=== PATIENT | female | born 1945 | race Caucasian/White ===

== ENCOUNTER 2022-05-16 09:11 | Emergency (ER) | payer MEDICARE, SELFPAY ==
--- NOTE | ~2022-05-16 | CT_ITS ---
EXAMINATION: CTA chest PE protocol DATE: 05/16/2022 12:23 INDICATION: Positive d-dimer. Tachycardia. TECHNIQUE: Computed tomography angiography (CTA) of the chest was performed with 100 mL Omnipaque-350 intravenous contrast timed to evaluate the pulmonary arteries. Coronal maximum intensity projection 3D-reconstructions were created by the technologist. Automated exposure control and iterative reconst ruction technique were employed. Exam dose: 383.12 mGy-cm total exam DLP. COMPARISON: None. FINDINGS: There is diagnostic contrast enhancement of the pulmonary arteries and no evidence of pulmo nary embolism. No thoracic aortic aneurysm or dissection. Normal heart size. No hilar or mediastinal mass lesion or lymphadenopathy. No pulmonary infiltrate or consolidation. Small sliding hiatal hernia. The adrenal glands are unremarkable. Included skeletal structures are unremarkable. IMPRESSION: Negative examination; no evidence of pulmonary embolism Reviewed, dictated and finalized at [facility]. Reviewed, dictated and finalized at [facility].
--- NOTE | 2022-05-16 09:40 | ED.EXTPRO ---
HPI - Extremity Problem General Chief complaint: Extremity Problem,Nontraumatic Stated complaint: DVT? Time Seen by Provider: 05/16/22 09:24 History of Present Illness HPI Narrative: Patient is a 77-year-old female here for evaluation of right leg cramping since last night. Patient states that she does have a history of diffuse muscle cramping at nighttime but states that it always goes away by the morning time. Patient states that today, her right calf remained painful and she notes that it looks somewhat swollen. States the pain is there all the time but is worse with movement of her foot and also with ambulation. Denies injury or trauma. Denies shortness of breath, chest pain, fevers, chills. Related Data Home Medications Medication Instructions Recorded Confirmed aspirin 81 mg tablet,delayed 81 mg PO DAILY 12/06/21 12/06/21 release (Adult Low Dose Aspirin) Allergies Allergy/AdvReac Type Severity Reaction Status Date / Time Penicillins Allergy Mild hives Verified 05/16/22 11:01 Sulfa (Sulfonamide AdvReac Mild Rash Verified 05/16/22 11:01 Antibiotics) Review of Systems Review of Systems: Gen.: Denies fevers or chills Eyes: Denies eye pain or visual change ENT: Denies congestion Respiratory: Denies shortness of breath or cough CV: Denies chest pain or palpitations GI: Denies abdominal pain nausea, emesis or diarrhea denies burning, urgency, frequency or hematuria Musculoskeletal: Reports right calf pain. Neuro: Denies numbness, tingling, weakness or focal weakness Skin: Denies rash Except as documented, all other systems reviewed and negative [facility] Past Medical History Medical History Diabetes type 2, controlled Hypertension Family History Family History Mother Acute myocardial infarction Cerebrovascular accident Heart disease Sibling Acute myocardial infarction Heart disease Hypertension Father FH: stomach cancer Hypertension Grandparent Diabetes mellitus Social History Social History Smoking status: Never smoker Alcohol intake: never Substance use: never Additional living arrangements comments: With Gender identity (if verbalized by the patient): Female Sexual Orientation (if Verbalized by the Patient): Straight or Heterosexual Spiritual care concerns: No Agree to blood products: Yes Exam Narrative: APPEARANCE: Well appearing, no pain in distress, well-nourished. Head: Normocephalic and atraumatic. EYES: PERRLA/EOMI, conjunctivae clear NOSE: No nasal drainage EARS: External ear normal in appearance THROAT: Oropharynx is clear. Mucous membranes are moist. NECK: Supple. No adenopathy, no masses. RESPIRATORY: Airway patent, respirations nonlabored. Clear to auscultation bilaterally, no rales, rhonchi, wheezing. CARDIOVASCULAR: 2+ DP and PT pulses bilaterally. Regular rate and rhythm without murmurs, rubs, or gallops. ABDOMINAL: Normoactive bowel sounds. Soft, nontender, nondistended. No rebound tenderness or guarding. MUSCULOSKELETAL: Full range of motion in bilateral feet, knees, and hips. Trace pitting edema to bilateral lower extremities. Tender to palpation over right calf. Pain in right calf elicited with dorsiflexion of right foot. NEURO: Normal speech. No focal neurologic deficits. SKIN: Skin is warm and dry. No rashes. PSYCHIATRIC: Normal affect/mood. Course Vital Signs Vital signs: Vital Signs Temperature 97 F L 05/16/22 10:00 Pulse Rate 79 05/16/22 10:00 Respiratory Rate 16 05/16/22 10:00 Blood Pressure 142/65 H 05/16/22 10:00 Pulse Oximetry 96 05/16/22 10:00 Oxygen Delivery Room Air 05/16/22 10:00 Temperature 97 F L 05/16/22 10:00 Pulse Rate 75 05/16/22 14:06 Respiratory Rate 18 05/16/22 14:06 Blood Pressure 131/92 H 05/16/22
[2022-05-16 10:00] VITALS: BP 142/65; PULSE 79; RESP 16; TEMP 36.1; O2SAT 96
[2022-05-16] MEDS: ACETAMINOPHEN 325 MG TABLET 650 MG PO (10:19)
[2022-05-16 10:46] LABS: Basophils Absolute Auto 0.1 K/mm3 (0.0-0.1); Basophils Percent Auto 0.7 % (0.2-1.2); Eosinophils Absolute Auto 0.1 K/mm3 (0-0.3); Eosinophils Percent Auto 0.9 % (0-4.4); Hemoglobin 12.5 g/dL (12.0-15.0); Immature Granulocyte Absolute 0.04 K/mm3 (0.00-0.031); Immature Granulocyte Percent A 0.6 % (0-0.5); Lymphocytes Percent Auto 12.8 % (18.3-44.2); Mean Corpuscular HGB Conc 33.8 g/dl (32-36); Mean Corpuscular Hemoglobin 31.2 pg (26-34); Mean Corpuscular Volume 92.3 fl (80-100); Mean Platelet Volume 9.6 fl (7.4-10.4); Monocytes Absolute Auto 0.5 K/mm3 (0.1-0.6); Monocytes Percent Auto 7.4 % (2.6-8.5); Neutrophils Absolute Auto 5.5 K/mm3 (1.3-6.7); Neutrophils Percent Auto 77.6 % (45.5-73.1); Platelet Count Result 214 k/mm3 (150-375); Red Blood Count 4.01 M/mm3 (4.2-5.4); Red Cell Distribution Width 11.5 % (11.5-14.5); White Blood Count 7.1 K/mm3 (4.5-10.0)
[2022-05-16 10:56] LABS: Alanine Aminotransferase 16 U/L (6-35); Albumin Level 4.2 g/dL (3.5-5.1); Alkaline Phosphatase 59 U/L (38-126); Anion Gap 6 mmol/L (8-16); Aspartate Amino Transferase 25 U/L (14-36); Bilirubin,Total 0.3 mg/dL (0.2-1.3); Blood Urea Nitrogen 16 mg/dL (7-17); Calcium 9.1 mg/dL (8.4-10.2); Carbon Dioxide 25 mmol/L (22-30); Chloride 105 mmol/L (98-107); Creatine Kinase 238 U/L (30-135); Estimated CRCL calculation 47 ml/min; Estimated Glomerular Filt Rate > 60; Glucose 204 mg/dL (65-110); Potassium 4.4 mmol/L (3.4-5.0); Sodium 136 mmol/L (137-145)
[2022-05-16 10:59] LABS: INR 1.1; Prothrombin Time 13.3 Seconds (11.1-14.7)
[2022-05-16 11:02] VITALS: BP 151/79; PULSE 72; RESP 15; O2SAT 96
[2022-05-16 11:19] LABS: D Dimer > 20.00 ug/mL (<0.48)
[2022-05-16] MEDS: ENOXAPARIN 100 MG/ML SYRINGE SUB-Q (12:23)
[2022-05-16 12:27] VITALS: BP 91/69; PULSE 82; RESP 20; O2SAT 98
[2022-05-16 14:06] VITALS: BP 131/92; PULSE 75; RESP 18; O2SAT 97
== END 2022-05-16 14:08 | disposition home or self-care (01) ==
PROVIDERS: Physician Assistant; Emergency Provider Emergency Medicine; PCP Family Medicine Adolescent Medicine
DX: M79.604 Pain in right leg (principal); R79.89 Other specified abnormal findings of blood chemistry; R25.2 Cramp and spasm; E11.9 Type 2 diabetes mellitus without complications; I10 Essential (primary) hypertension
CPT/HCPCS: 36415; 71275; 80053; 82550; 85025; 85380; 85610; 85730; 96372; 99284; A9270; J1650; Q9967

== ENCOUNTER 2022-05-17 07:45 | Outpatient (CLI) | payer MEDICARE, SELFPAY ==
--- NOTE | ~2022-05-17 | US_ITS ---
EXAMINATION: US venous doppler LE RT DATE: 05/17/2022 08:17 INDICATION: Right lower limb pain TECHNIQUE: Cruz scale images without and with compression and Doppler images of the right lower extre mity veins were obtained. COMPARISON: None FINDINGS: The right common femoral vein, profunda femoral vein, femoral vein, popliteal vein, peronea l trunk, posterior tibial veins, and greater saphenous vein are patent. IMPRESSION: 1. Patent right lower extremity veins. No evidence of deep venous thrombosis. Reviewed, dictated and finalized at [facility].
== END 2022-05-17 07:46 | disposition home or self-care (01) ==
PROVIDERS: PCP Family Medicine Adolescent Medicine; Visit Provider Physician Assistant
DX: M79.604 Pain in right leg (principal)
CPT/HCPCS: 93971

== ENCOUNTER 2023-07-03 16:28 | Emergency (ER) | payer MEDICARE, SELFPAY ==
--- NOTE | ~2023-07-03 | XR_ITS ---
EXAMINATION: XR knee RT 3V DATE: 07/03/2023 17:42 INDICATION: Posterior right knee pain TECHNIQUE: Anteroposterior, oblique and crosstable lateral views of the right knee were obtained COMPARISON: None. FINDINGS: Alignment is normal. No fracture. Mild osteoarthritis at the right knee with tiny marginal osteophyt es at the lateral tibial plateau and patella. Joint spaces appear normal however this can be underest imated on nonweightbearing imaging. No joint effusion/layering lipohemarthrosis. Soft tissues are unr emarkable. IMPRESSION: 1. Mild osteoarthritis at the lateral and patellofemoral compartments of the right knee. No joint eff usion or acute osseous abnormality. Reviewed, dictated and finalized at location [facility]. IMPRESSION: 1. Mild osteoarthritis at the lateral and patellofemoral compartments of the ri ght knee. No joint effusion or acute osseous abnormality.
--- NOTE | ~2023-07-03 | US_ITS ---
EXAMINATION: US venous doppler LE RT DATE: 07/03/2023 18:01 INDICATION: Right lower limb pain and swelling TECHNIQUE: Grayscale ultrasound images without and with compression and Doppler ultrasound images of the right lower extremity veins were obtained. COMPARISON: None. FINDINGS: The visualized portions of right common femoral vein, profunda (deep) femoral vein, femoral vein, pop liteal vein, peroneal trunk, posterior tibial veins, peroneal veins, gastrocnemius vein and greater s aphenous vein outflow are patent. IMPRESSION: 1. No deep venous thrombosis in the right lower limb. Reviewed, dictated and finalized at location [facility].
[2023-07-03 17:10] VITALS: BP 185/74; PULSE 77; RESP 16; TEMP 36.2; O2SAT 99
--- NOTE | 2023-07-03 17:24 | ED.GENADULT ---
[facility] - General Adult General Chief complaint: Extremity Injury, Lower Stated complaint: right leg pain Time Seen by Provider: 07/03/23 17:12 Source: patient Mode of arrival: ambulatory Limitations: no limitations History of Present Illness HPI narrative: This is a 78-year-old female who presents to the ED with chief complaint of right knee and right lower extremity pain for the past week. She has been initial incident of increased pain while walking through the grocery store a week ago and feels that her pain in the knee and calf have been worsening ever since. She states today it has been difficult to bear weight on the leg which is why she is here. She reports pain radiates from the knee into the calf and vice versa at times. Denies any history of blood clots. Does endorse a little bit of right calf swelling compared to left. Denies fevers, chills, nausea, vomiting. Related Data Allergies Allergy/AdvReac Type Severity Reaction Status Date / Time lisinopril Allergy Severe Rash Verified 06/15/23 13:11 Penicillins Allergy Mild hives Verified 06/15/23 13:11 thimerosal Allergy Rash Verified 06/15/23 13:11 Sulfa (Sulfonamide AdvReac Mild Rash Verified 06/15/23 13:11 Antibiotics) Review of Systems Review of Systems: All systems as dictated in [facility] Past Medical History Medical History Diabetes type 2, controlled Hypertension Family History Family History Mother Acute myocardial infarction Cerebrovascular accident Heart disease Sibling Acute myocardial infarction Heart disease Hypertension Father FH: stomach cancer Hypertension Grandparent Diabetes mellitus Social History Social History Smoking status: Never smoker Alcohol intake: never Substance use: never Living arrangements: with family Additional living arrangements comments: With Occupation/Education: retired Gender identity (if verbalized by the patient): Female Sexual Orientation (if Verbalized by the Patient): Straight or Heterosexual Spiritual care concerns: No Agree to blood products: Yes Exam Narrative: GENERAL: Well-appearing, well-nourished, and in no acute distress. HEAD: Normocephalic, atraumatic. EYES: PERRLA and EOMI. ENT: Nares clear, no rhinorrhea or epistaxis. Mucous membranes moist. Oropharynx without tonsillar hypertrophy exudate or other lesions. NECK: Supple. No adenopathy or masses. CHEST: No respiratory distress. Clear to auscultation. No wheezes rales or rhonchi HEART: Regular rate and rhythm. No murmur heard. Normal peripheral pulses. ABDOMEN: Soft, nontender, nondistended, normal active bowel sounds. MSK: RLE: No gross deformities or bruising. Tenderness to the posterior knee. She is not tender otherwise throughout the lower extremity. Full active and passive range of motion. Normal hip exam. Neurovascularly intact distally. No warmth, erythema or wounds. LLE: Benign SKIN: Warm, dry, no rash. NEURO: Alert and oriented x3. No focal deficits. PSYCH: Normal mood and affect. Course Vital Signs Vital signs: Vital Signs Temperature 97.2 F L 07/03/23 17:10 Pulse Rate 77 07/03/23 17:10 Respiratory Rate 16 07/03/23 17:10 Blood Pressure 185/74 H 07/03/23 17:10 Pulse Oximetry 99 07/03/23 17:10 Oxygen Delivery Room Air 07/03/23 17:10 Temperature 97.2 F L 07/03/23 17:10 Pulse Rate 77 07/03/23 17:10 Respiratory Rate 16 07/03/23 17:10 Blood Pressure 185/74 H 07/03/23 17:10 Pulse Oximetry 99 07/03/23 17:10 Oxygen Delivery Room Air 07/03/23 17:10 Medical Decision Making MDM Narrative Medical decision making narrative: This is a 78-year-old female who presents to the ED with chief complaint of right knee and calf pain for the past week. Reports difficulty b
== END 2023-07-03 18:48 | disposition home or self-care (01) ==
PROVIDERS: Emergency Provider Physician Assistant; PCP Family Medicine Adolescent Medicine
DX: M25.561 Pain in right knee (principal); E11.9 Type 2 diabetes mellitus without complications; I10 Essential (primary) hypertension
CPT/HCPCS: 73562; 93971; 99284